=== PATIENT | male | born 1950 | race Caucasian/White ===

== ENCOUNTER 2018-05-02 14:55 | Emergency (ER) | payer BC, MEDICARE ==
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
[2018-05-02 17:04] LABS: ABSOLUTE BASOPHILS # (AUTO) 0.1 10^3/uL (0.0-0.2); ABSOLUTE EOSINOPHILS # (AUTO) 0.1 10^3/uL (0.0-0.6); ABSOLUTE LYMPHOCYTES (AUTO) 0.9 10^3/uL (0.5-4.7); ABSOLUTE MONOCYTES (AUTO) 0.5 10^3/uL (0.1-1.4); ABSOLUTE NEUT (AUTO) 3.6 10^3/uL (1.7-8.2); BASOPHILS % (AUTO) 1.4 % (0-2); EOSINOPHILS % (AUTO) 2.1 % (0-6); HEMOGLOBIN 12.9 g/dL (13.5-17.0); LYMPHOCYTES % (AUTO) 17.9 % (13-45); MEAN CORPUSCULAR HEMOGLOBIN 32.5 pg (27.0-33.4); MEAN CORPUSCULAR HGB CONC 33.9 g/dL (32.0-36.0); MEAN CORPUSCULAR VOLUME 96 fl (80-97); MONOCYTES % (AUTO) 9.3 % (3-13); PLATELET COUNT 217 10^3/uL (150-450); RED BLOOD COUNT 3.97 10^6/uL (4.35-5.55); RED CELL DISTRIBUTION WIDTH 13.8 % (11.5-14.0); SEGMENTED NEUTROPHILS % (AUTO) 69.3 % (42-78); TOTAL CELLS COUNTED % (AUTO) 100 %; WHITE BLOOD COUNT 5.2 10^3/uL (4.0-10.5)
[2018-05-02 17:22] LABS: ALANINE AMINOTRANSFERASE 72 U/L (21-72); ALBUMIN 3.1 g/dL (3.5-5.0); ALKALINE PHOSPHATASE 70 U/L (38-126); ANION GAP 13 (5-19); ASPARTATE AMINO TRANSFERASE 153 U/L (17-59); BILIRUBIN,DIRECT 0.5 mg/dL (0.0-0.4); BILIRUBIN,TOTAL 0.6 mg/dL (0.2-1.3); BLOOD UREA NITROGEN 10 mg/dL (7-20); CALCIUM 8.4 mg/dL (8.4-10.2); CARBON DIOXIDE 25 mmol/L (22-30); CHLORIDE 105 mmol/L (98-107); GLUCOSE 101 mg/dL (75-110); POTASSIUM 4.4 mmol/L (3.6-5.0); SODIUM 142.9 mmol/L (137-145); TOTAL PROTEIN 6.6 g/dL (6.3-8.2)
--- NOTE | 2018-05-02 17:59 | RADIOLOGY REPORT (SQ) ---
EXAM DESCRIPTION: CT ABD/PELVIS WITH IV ONLY COMPLETED DATE/TIME: 05/02/2018 5:43 pm REASON FOR STUDY: Right sided abdominal pain after fall COMPARISON: None. TECHNIQUE: CT scan of the abdomen and pelvis performed using helical scanning technique with dynamic intravenous contrast injection. No oral contrast. Images reviewed with lung, soft tissue, and bone windows. Reconstructed coronal and sagittal MPR images reviewed. Delayed images for evaluation of the urinary system also acquired. All images stored on PACS. All CT scanners at this facility use dose modulation, iterative reconstruction, and/or weight based d osing when appropriate to reduce radiation dose to as low as reasonably achievable (ALARA). [facility]: Dose Right [facility]: CareDose [facility]: Dose Right [facility]: Teradose 4D [facility]: PocketSuite CONTRAST TYPE AND DOSE: contrast/concentration: Isovue 370.00 mg/ml; Total Contrast Delivered: 100.0 ml; Total Saline Delivered: 50.0 ml RENAL FUNCTION: BUN 10 creatinine 1.2 RADIATION DOSE: CT Rad equipment meets quality standard of care and radiation dose reduction techniq ues were employed. CTDIvol: 19.9 - 20.7 mGy. DLP: 2189 mGy-cm.. LIMITATIONS: None. FINDINGS: LOWER CHEST: No significant findings. No nodules or infiltrates. LIVER: The liver is uniformly hypoattenuating. SPLEEN: Normal size. No focal lesions. PANCREAS: No masses. No significant calcifications. No adjacent inflammation or peripancreatic fluid collections. Pancreatic duct not dilated. GALLBLADDER: No identified stones by CT criteria. No inflammatory changes to suggest cholecystitis. ADRENAL GLANDS: No significant masses or asymmetry. RIGHT KIDNEY AND URETER: No masses. Cortical thinning. No significant calcifications. No hydrone phrosis or hydroureter. LEFT KIDNEY AND URETER: Masses. Mild cortical thinning. No significant calcifications. No hydron ephrosis or hydroureter. AORTA AND VESSELS: No aneurysm. No dissection. Renal arteries, SMA, celiac without stenosis. RETROPERITONEUM: No retroperitoneal adenopathy, hemorrhage or masses. BOWEL AND PERITONEAL CAVITY: No masses or inflammatory changes. No free fluid or peritoneal masses. APPENDIX: Not identified. PELVIS: There is a Diaz catheter in the bladder. There is dense bladder calculus or calculi. ABDOMINAL WALL: No masses. No hernias. BONES: Lumbar degenerative disc changes. No acute abnormality. OTHER: No other significant finding. IMPRESSION: 1. Fatty infiltration of the liver. 2. Chronic cortical thinning in the kidneys. 3. There appear to be bladder calculi. 4. Lumbar degenerative disc changes. TECHNICAL DOCUMENTATION: JOB ID: [id number] Quality ID # [id number]: Final reports with documentation of one or more dose reduction techniques (e.g., Au tomated exposure control, adjustment of the mA and/or kV according to patient size, use of iterative reconstruction technique) 2010 [employer]- All Rights Reserved Reading location - IP/workstation name: [email or web address]
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
--- NOTE | 2018-05-03 10:27 | ER Document Report ---
Doctor's Note Notes: 05/03/18 10:24 Rounds: Chart reviewed and patient interviewed. I took care of this patient last evening and he was kept overnight because he could not contact family for him to be discharged. According to the patient, his daughter went to [place], somewhere near the border with [place], to sign paperwork to purchase a house. Patient says that he and the daughter and her , both of which were unemployed, are supposed to move there sometime later this month. He has tried to contact his daughter by telephone but has not been able to reach her. He is living with her and her in the residence of the daughter's mother, this patient 's ex-, locally. Patient says he does not get along very wel with his ex- . He says that his ex- works in the [employer] [facility]. He does not know her address or telephone number. Vital signs are all essentially normal. Lab studies were all also essentially normal. Patient had CT scan of his abdomen and pelvis last evening which were essentially normal. He had other studies including CT scans [facility] before he came in here yesterday to be evaluated for the same problem. Discharge planning has been requested to evaluate the situation and to assist in making a disposition. Patient appears to be medically stable for transfer or discharge. Pavithra Alonzo MD
[2018-05-04] MEDS ORDERED: ACETAMINOPHEN 325 MG TABLET PO ONE (12:20)
--- NOTE | 2018-05-04 12:22 | ER Document Report ---
Doctor's Note Notes: 05/04/18 12:21 Patient's records were reviewed including the CT scan that did not show any acute abnormalities. He will be discharged home today to his ex 's house where he had been staying. Arrangements were made by the social group worker at this facility.
[2018-05-04 12:51] VITALS: BP 126/80
== END 2018-05-04 12:51 | disposition home or self-care (01) ==
LOC: ER 14:55
DX: Z88.2 Allergy status to sulfonamides (principal); S30.1XXA Contusion of abdominal wall, initial encounter; M25.511 Pain in right shoulder; X58.XXXA Exposure to other specified factors, initial encounter; Z88.3 Allergy status to other anti-infective agents
CPT/HCPCS: 80307; 99285; 36415; 83690; 85025; 80053; 73030; 74177; A9270

== ENCOUNTER 2018-05-04 16:52 | Observation (INO) | payer MEDICARE ==
--- NOTE | 2018-05-04 17:05 | ER Document Report ---
HPI - HPI Pain Level: Denies Past Medical History - Social History Family History: Reviewed & Not Pertinent Renal/ Medical History: Denies: Hx Peritoneal Dialysis Past Surgical History: Reports: Hx Orthopedic Surgery - Back 2 Vertical Provider Document - INFECTION CONTROL TRAVEL OUTSIDE OF THE [place] IN LAST 30 DAYS: No Course - Vital Signs Vital signs: Temp Pulse Resp BP Pulse Ox 98 F 88 16 148/88 H 94 05/04/18 16:56 05/04/18 16:56 05/04/18 16:56 05/04/18 16:56 05/04/18 16:56
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
[2018-05-04] MEDS ORDERED: ONDANSETRON 4 MG TAB.RAPDIS PO PRN (18:26)
[2018-05-04] MEDS ORDERED: GABAPENTIN 100 MG CAPSULE PO PRN (18:30)
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
[2018-05-04] MEDS: METOPROLOL TARTRATE 25 MG TABLET PO SCH (21:53)
[2018-05-04] MEDS: ACETAMINOPHEN 325 MG TABLET PO PRN (21:54)
[2018-05-04] MEDS ORDERED: MIRTAZAPINE 15 MG TABLET PO SCH (22:00)
[2018-05-05 07:08] LABS: ALANINE AMINOTRANSFERASE 71 U/L (21-72); ALBUMIN 2.9 g/dL (3.5-5.0); ALKALINE PHOSPHATASE 66 U/L (38-126); ANION GAP 7 (5-19); ASPARTATE AMINO TRANSFERASE 91 U/L (17-59); BILIRUBIN,DIRECT 0.4 mg/dL (0.0-0.4); BILIRUBIN,TOTAL 0.4 mg/dL (0.2-1.3); BLOOD UREA NITROGEN 14 mg/dL (7-20); CALCIUM 8.8 mg/dL (8.4-10.2); CARBON DIOXIDE 27 mmol/L (22-30); CHLORIDE 107 mmol/L (98-107); GLUCOSE 89 mg/dL (75-110); POTASSIUM 4.8 mmol/L (3.6-5.0); SODIUM 141.3 mmol/L (137-145)
[2018-05-05] MEDS ORDERED: LOSARTAN POTASSIUM 25 MG TABLET PO SCH (10:00)
[2018-05-05] MEDS ORDERED: ASPIRIN 81 MG TABLET, ENT COATED PO SCH (10:00)
[2018-05-05] MEDS ORDERED: ATORVASTATIN CALCIUM 40 MG TABLET PO SCH (10:00)
[2018-05-05] MEDS ORDERED: AMLODIPINE BESYLATE 10 MG TABLET PO SCH (10:00)
[2018-05-05] MEDS ORDERED: ENOXAPARIN SODIUM INJ 40 MG/0.4 ML DISP.SYRIN SUBCUT SCH (10:00)
[2018-05-05] MEDS: METOPROLOL TARTRATE 25 MG TABLET PO SCH (11:49)
[2018-05-05] MEDS: ACETAMINOPHEN 325 MG TABLET PO PRN (12:59)
[2018-05-05 16:35] VITALS: BP 99/68
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
== END 2018-05-05 20:00 | disposition left against medical advice (07) ==
LOC: ER 16:52 → EH 18:48 → 5 21:04
PROVIDERS: ADMIT Internal Medicine; ATTEND Internal Medicine
DX: T76.01XA Adult neglect or abandonment, suspected, initial encounter (principal); I10 Essential (primary) hypertension; N35.8 Other urethral stricture; F32.9 Major depressive disorder, single episode, unspecified; G89.29 Other chronic pain; M54.5 Low back pain; R26.81 Unsteadiness on feet; Z96.0 Presence of urogenital implants; Z74.09 Other reduced mobility; Z98.890 Other specified postprocedural states; Z79.82 Long term (current) use of aspirin; Z79.899 Other long term (current) drug therapy; Z68.33 Body mass index [BMI] 33.0-33.9, adult; Z63.8 Other specified problems related to primary support group; Z74.8 Other problems related to care provider dependency; Z91.81 History of falling
CPT/HCPCS: 99285; 36415; 80076; 80048; G0378 ×2; A9270 ×4; J3490

== ENCOUNTER 2018-05-07 05:41 | Emergency (ER) | payer MEDICARE ==
[2018-05-07 05:51] VITALS: BP 118/80
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
--- NOTE | 2018-05-07 07:18 | RADIOLOGY REPORT (SQ) ---
EXAM DESCRIPTION: XR CHEST 2 VIEWS COMPLETED DATE/TME: 05/07/2018 06:44 CLINICAL HISTORY: hx rib fx, increased pain, crackles RLL COMPARISON: None. FINDINGS: Frontal and lateral views of the chest. The cardiomediastinal silhouette has normal size and contour. No consolidation, pneumothorax, or pleural effusion. Fractures of the posterior left third through fifth ribs. No pneumothorax. Upper abdominal soft tissues are unremarkable. IMPRESSION: 1. Fractures of posterior left third through fifth ribs. No pneumothorax.
[2018-05-07] MEDS ORDERED: LIDOCAINE 5% (700 MG) TRANSDERMAL ADH..PATCH TP ONE (07:20)
[2018-05-07] MEDS ORDERED: KETOROLAC TROMETHAMINE 60 MG/2 ML SDV IM ONE (07:20)
== END 2018-05-07 08:40 | disposition home or self-care (01) ==
LOC: ER 05:41
DX: S22.42XD Multiple fractures of ribs, left side, subsequent encounter for fracture with routine healing (principal); W19.XXXD Unspecified fall, subsequent encounter; R10.9 Unspecified abdominal pain; R10.11 Right upper quadrant pain; R10.816 Epigastric abdominal tenderness; R10.811 Right upper quadrant abdominal tenderness; R10.814 Left lower quadrant abdominal tenderness; R00.0 Tachycardia, unspecified; R09.89 Other specified symptoms and signs involving the circulatory and respiratory systems; I10 Essential (primary) hypertension; Z88.1 Allergy status to other antibiotic agents; Z88.2 Allergy status to sulfonamides
CPT/HCPCS: 99283; 96372; 71046; J1885

== ENCOUNTER 2018-05-13 22:12 | Inpatient (IN) | payer MEDICARE ==
[2018-05-13] MEDS ORDERED: ACETAMINOPHEN 325 MG TABLET PO ONE (23:03)
[2018-05-13] MEDS ORDERED: NORMAL SALINE 1000 ML 1,000 ML IV ONE (23:03)
--- NOTE | 2018-05-13 23:04 | ER Document Report ---
ED Medical Screen (RME) - General Chief Complaint: Pain All Over Stated Complaint: BODY PAIN Time Seen by Provider: 05/13/18 22:55 Mode of Arrival: Wheelchair Information source: Patient TRAVEL OUTSIDE OF THE [place] IN LAST 30 DAYS: No - HPI Patient complains to provider of: Fever, body aches, nausea and vomiting, generalized weakness - Related Data Allergies/Adverse Reactions: erythromycin base Allergy (Verified 05/02/18 14:57) Sulfa (Sulfonamide Antibiotics) Allergy (Verified 05/02/18 14:57) Past Medical History - Social History Frequency of alcohol use: Pt states,"as often as I can." Drug Abuse: None - Past Medical History Cardiac Medical History: Reports: Hx Hypertension Renal/ Medical History: Denies: Hx Peritoneal Dialysis Past Surgical History: Reports: Hx Appendectomy - Reports as of 05/07/2018, Hx Orthopedic Surgery - Back 2 - Immunizations History of Influenza Vaccine for 07/2017 - 12/2017 Season: Unknown Physical Exam - Vital signs Vitals: Temp Pulse Resp BP Pulse Ox 99.6 F 111 H 18 139/95 H 97 05/13/18 22:19 05/13/18 22:19 05/13/18 22:19 05/13/18 22:19 05/13/18 22:19 Course - Vital Signs Vital signs: Temp Pulse Resp BP Pulse Ox 99.6 F 111 H 18 139/95 H 97 05/13/18 22:19 05/13/18 22:19 05/13/18 22:19 05/13/18 22:19 05/13/18 22:19
--- NOTE | 2018-05-13 23:47 | RADIOLOGY REPORT (SQ) ---
EXAM DESCRIPTION: XR CHEST 1 VIEW COMPLETED DATE/TME: 05/13/2018 23:03 CLINICAL HISTORY: 67 years, Male, fever COMPARISON: 05/07/2018 FINDINGS: Single view of the chest is submitted. Cardiac silhouette is normal. There is a small focus of consolidation at the left lung base, new since the prior exam. No acute bony abnormality. There is no significant pulmonary vascular engorgement. IMPRESSION: Left lung base consolidation.
[2018-05-14] MEDS ORDERED: NORMAL SALINE 1000 ML 500 ML IV ONE (00:48)
--- NOTE | 2018-05-14 00:51 | ER Document Report ---
ED General - General Chief Complaint: Pain All Over Stated Complaint: BODY PAIN Time Seen by Provider: 05/13/18 22:55 Mode of Arrival: Wheelchair Notes: Patient is a 67-year-old male that comes emergency department for chief complaint of weakness, he vomited twice earlier, he had some chills, he states that today he felt like he could not get out of bed or stand to walk around, he states he has no balance. He drinks alcohol heavily and regularly, he has a history of hypertension and reported neuropathy. He has chronic left-sided weakness in his hand on the left after multiple fractures in his arm, forearm, hand patient reports. He states he has not drank any alcohol since yesterday. He denies getting alcohol withdrawals. He denies smoking or recreational drugs. TRAVEL OUTSIDE OF THE [place] IN LAST 30 DAYS: No - Related Data Allergies/Adverse Reactions: erythromycin base Allergy (Verified 05/02/18 14:57) Sulfa (Sulfonamide Antibiotics) Allergy (Verified 05/02/18 14:57) Past Medical History - General Information source: Patient - Social History Smoking Status: Former Smoker Frequency of alcohol use: Pt states,"as often as I can." Drug Abuse: None Family History: Reviewed & Not Pertinent Patient has suicidal ideation: No Patient has homicidal ideation: No - Past Medical History Cardiac Medical History: Reports: Hx Hypertension Renal/ Medical History: Denies: Hx Peritoneal Dialysis Past Surgical History: Reports: Hx Appendectomy - Reports as of 05/07/2018, Hx Orthopedic Surgery - Back 2 Review of Systems - Review of Systems Constitutional: See HPI EENT: No symptoms reported Cardiovascular: No symptoms reported Respiratory: No symptoms reported Gastrointestinal: See HPI Genitourinary: No symptoms reported Male Genitourinary: No symptoms reported Musculoskeletal: No symptoms reported Skin: No symptoms reported Hematologic/Lymphatic: No symptoms reported Neurological/Psychological: See HPI Physical Exam - Vital signs Vitals: Temp 98 F 05/13/18 22:15 - Notes Notes: GENERAL: Patient ill-appearing, disheveled HEAD: Normocephalic, atraumatic. EYES: Pupils equal, round, and reactive to light. Extraocular movements intact. ENT: Oral mucosa dry, tongue midline. NECK: Full range of motion. Supple. Trachea midline. LUNGS: A few scattered rhonchi, occasional congested cough, no tachypnea or labored breathing HEART: Regular rate and rhythm. No murmur ABDOMEN: Soft, non-tender. Non-distended. Bowel sounds present in all 4 quadrants. EXTREMITIES: Moves all 4 extremities spontaneously. No edema, normal radial and dorsalis pedis pulses bilaterally. No cyanosis. BACK: no cervical, thoracic, lumbar midline tenderness. No saddle anesthesia, normal distal neurovascular exam. NEUROLOGICAL: Alert and oriented x3. Normal speech. [cranial nerves II through XII grossly intact]. Baseline tremor noted. Weakness in the left hand with senior health consultant and weakness in lifting the left leg compared to the right. PSYCH: Normal affect, normal mood. SKIN: Slightly pale Course - Re-evaluation Re-evalutation: CT of the head performed because of reported imbalance and uncertain duration of his left-sided weakness. This was negative for acute findings. Chest x-ray consistent with left lower lobe infiltrate. Urinalysis shows infection. CBC generally unremarkable actually. Chemistry generally unremarkable. Lactic acid is elevated at 3.1, suspect septic pneumonia. He is tachycardic with no hypotension or fever here, reported chills and sweats at home, good capillary refill on examination and reexamination. Patient was initially started on Levaquin, he is allergic to erythromycin. Cultures placed in pending. Given IV fluids. Because of suspected sepsis with pneumonia, UTI, and tachycardia will discuss with hospitalist for admission. Discussed with patient. He states agreement with this plan. Discussed with Dr. Ayoub, internal medicine, patient will be admitted to telemetry full admission. - Vital Signs Vital signs: Temp Pulse Resp BP Pulse Ox 99.6 F 88 14 140/87 H 96 05/13/18 22:19 05/14/18 02:15 05/14/18 04:01 05/14/18 04:00 05/14/18 04:01 - Laboratory Result Diagrams: 05/14/18 05:00 05/14/18 05:00 Laboratory results interpreted by me: 05/14/18 05/14/18 05/14/18 01:00 01:00 01:00 RBC 4.09 L Hgb 12.8 L VBG pH Chloride 108 H Carbon Dioxide 21 L Glucose 129 H Lactic Acid 3.1 H Urine Protein Urine Blood Urine Nitrite Ur Leukocyte Esterase 05/14/18 05/14/18 01:00 01:16 RBC Hgb VBG pH 7.43 H Chloride Carbon Dioxide Glucose Lactic Acid Urine Protein 30 H Urine Blood SMALL H Urine Nitrite POSITIVE H Ur Leukocyte Esterase LARGE H Discharge - Discharge Clinical Impression: Weakness, Tachycardia, Elevated lactic acid level Pneumonia Qualifiers: Pneumonia type: due to unspecified organism Laterality: left Lung location: lower lobe of lung Qualified Code(s): J18.1 - Lobar pneumonia, unspecified organism Urinary tract infection Qualifiers: Urinary tract infection type: site unspecified Hematuria presence: without hematuria Qualified Code(s): N39.0 - Urinary tract infection, site not specified Condition: Stable Disposition: ADMITTED INPATIENT Admitting Provider: Hospitalist Unit Admitted: Telemetry
[2018-05-14] MEDS ORDERED: LEVOFLOXACIN 750 MG/D5W RTU 750 MG/150 ML RTUPB IV ONE (01:06)
[2018-05-14 01:16] LABS: VENOUS BLOOD BASE EXCESS -0.7 mmol/L; VENOUS BLOOD HCO3 23.1 mmol/L (20-32); VENOUS BLOOD PCO2 35.2 mmHg (35-63); VENOUS BLOOD PH 7.43 (7.30-7.42)
[2018-05-14 01:28] LABS: HEMATOCRIT 38.4 % (37.9-51.0); HEMOGLOBIN 12.8 g/dL (13.5-17.0); MEAN CORPUSCULAR HEMOGLOBIN 31.4 pg (27.0-33.4); MEAN CORPUSCULAR HGB CONC 33.5 g/dL (32.0-36.0); MEAN CORPUSCULAR VOLUME 94 fl (80-97); PLATELET COUNT 263 10^3/uL (150-450); RED BLOOD COUNT 4.09 10^6/uL (4.35-5.55); RED CELL DISTRIBUTION WIDTH 13.7 % (11.5-14.0); WHITE BLOOD COUNT 7.5 10^3/uL (4.0-10.5)
[2018-05-14 01:30] LABS: PROTHROMBIN TIME 13.7 SEC (11.4-15.4)
[2018-05-14 01:32] LABS: ALANINE AMINOTRANSFERASE 52 U/L (21-72); ALBUMIN 3.7 g/dL (3.5-5.0); ALKALINE PHOSPHATASE 84 U/L (38-126); ANION GAP 14 (5-19); ASPARTATE AMINO TRANSFERASE 44 U/L (17-59); BILIRUBIN,DIRECT 0.4 mg/dL (0.0-0.4); BILIRUBIN,TOTAL 0.7 mg/dL (0.2-1.3); BLOOD UREA NITROGEN 9 mg/dL (7-20); CALCIUM 8.8 mg/dL (8.4-10.2); CARBON DIOXIDE 21 mmol/L (22-30); CHLORIDE 108 mmol/L (98-107); CREATINE KINASE 103 U/L (55-170); GLUCOSE 129 mg/dL (75-110); LIPASE 274.3 U/L (23-300); POTASSIUM 4.3 mmol/L (3.6-5.0); SODIUM 143.3 mmol/L (137-145); TOTAL PROTEIN 7.2 g/dL (6.3-8.2)
[2018-05-14 01:36] LABS: APPEARANCE,URINE CLOUDY; BILIRUBIN,URINE NEGATIVE (NEGATIVE); COLOR,URINE YELLOW; GLUCOSE, URINE NEGATIVE (NEGATIVE); KETONES,URINE NEGATIVE (NEGATIVE); LEUKOCYTE ESTERASE,URINE LARGE (NEGATIVE); NITRITE,URINE POSITIVE (NEGATIVE); PROTEIN,URINE 30 mg/dL (NEGATIVE); URINE SPECIFIC GRAVITY 1.006; UROBILINOGEN,URINE NEGATIVE mg/dL (<2.0)
[2018-05-14 01:46] LABS: ABSOLUTE LYMPHOCYTES# (MANUAL) 1.5 10^3/uL (0.5-4.7); ABSOLUTE MONOCYTES # (MANUAL) 0.4 10^3/uL (0.1-1.4); ABSOLUTE NEUTROPHILS# (MANUAL) 5.3 10^3/uL (1.7-8.2); BASOPHILS % (MANUAL) 2 % (0-2); EOSINOPHILS % (MANUAL) 3 % (0-6); LYMPHOCYTES % (MANUAL) 20 % (13-45); MONOCYTES % (MANUAL) 5 % (3-13); SEGMENTED NEUTROPHILS % (MAN) 70 % (42-78); TOTAL CELLS COUNTED 100
[2018-05-14 01:47] LABS: PLATELET COMMENT ADEQUATE; RBC MORPHOLOGY COMMENT NORMO-CYTIC/CHROMIC
[2018-05-14] MEDS ORDERED: THIAMINE HCL 100 MG, FOLIC ACID 1 MG in NORMAL SALINE 250 ML IV PRN (01:56)
--- NOTE | 2018-05-14 02:35 | RADIOLOGY REPORT (SQ) ---
CT head without contrast on 05/14/2018 at 1:46 AM CLINICAL INDICATION: Imbalance, left-sided weakness TECHNIQUE: Multiple axial images are obtained throughout the head without the administration of contrast. This exam was performed according to our departmental dose-optimization program, which includes automated exposure control, adjustment of the mA and/or kV according to patient size and/or use of iterative reconstruction technique. Total DLP is 2193.96 mGy*cm. COMPARISON: None FINDINGS: There is generalized cerebral atrophy. There is no hydrocephalus. There is mild low-density in the periventricular white matter consistent with chronic small vessel ischemic changes. There is no CT evidence of acute infarct. There is no hemorrhage. There are no abnormal extra-axial fluid collections. There is no mass, mass effect or midline shift. Mucous retention cysts are noted in the left maxillary sinus. No acute bony abnormality is noted. IMPRESSION: Atrophy and chronic small vessel ischemic changes with no acute intracranial abnormality.
[2018-05-14] MEDS ORDERED: IPRATROPIUM/ALBUTEROL 0.5-2.5 MG/3 ML AMPUL NEB PRN (03:56)
[2018-05-14] MEDS ORDERED: PROMETHAZINE HCL INJ 25 MG/1 ML VIAL IV PRN (04:04)
[2018-05-14] MEDS ORDERED: PROMETHAZINE HCL INJ 25 MG/1 ML VIAL ONE (04:08)
--- NOTE | 2018-05-14 04:19 | PDOC H&P ---
History of Present Illness Admission Date/PCP: 05/14/18 03:17 Patient complains of: Did not feel good History of Present Illness: DIANE PERKINS is a 67 year old male who comes to the emergency department complaining of "didn't feel good". Patient tells me until yesterday he was doing at his baseline, today in the morning he was feeling sick, this progresses throughout the day, by 9 PM he was feeling very weak, was hard to walk, and noticed that his voice was changing, is "rough" and deep. Denies shortness of breath, he had minimal cough during the day, denies Flaim, he is having mild sore throat. He denies wheezing, fever, chills, chest pain, abdominal pain. Patient has a chronic indwelling catheter for the last 8 years secondary to ureteral stricture and neurogenic bladder, Diaz is changed once a month, last a week ago. Tells me that his urine is always infected, is not on chronic antibiotics, last urinary infection long ago. Times feels dysuria on and off, denies hematuria. Has chronic left lower extremity weakness secondary to back problems. Initially in the emergency department was tachycardic P1 111, R 23, O2 sat 100% on room air. Chest x-ray positive for left lower lobe pneumonia and a urinalysis positive for infection. Ordered 2 L of IV fluids and IV antibiotic. Past Medical History Cardiac Medical History: Reports: Hypertension Renal/ Medical History: Reports: Other Renal/ History Note: Chronic indwelling catheter secondary to urethral stricture and neurogenic bladder Psychiatric Medical History: Reports: Alcohol Dependency Traumatic Medical History: Reports: Other - The blood fractures in the left upper extremity, left rib fractures. Past Surgical History Past Surgical History: Reports: Appendectomy - Reports as of 05/07/2018, Orthopedic Surgery - Back surgery 2, Other - 2 urological surgeries Social History Smoking Status: Former Smoker - Quit in 1989, used to smoke 1-2 packs a day Frequency of Alcohol Use: Heavy - Patient drinks daily, 1 bottle of vodka last 2 or 3 days Last Alcohol Use: 05/13/18 Hx Recreational Drug Use: No Drugs: None Family History Family History: Reviewed & Not Pertinent Parental Family History Reviewed: No Children Family History Reviewed: NA Sibling(s) Family History Reviewed.: NA Medication/Allergy Home Medications: Amlodipine Besylate [Norvasc 10 mg Tablet] 10 mg PO DAILY 05/03/18 Aspirin [Aspirin EC] 81 mg PO DAILY 05/03/18 Atorvastatin Calcium [Lipitor 40 mg Tablet] 40 mg PO DAILY 05/03/18 Gabapentin [Neurontin 100 mg Capsule] 100 mg PO Q8HP PRN 05/03/18 Losartan Potassium [Cozaar 25 mg Tablet] 25 mg PO DAILY 05/03/18 Metoprolol Tartrate [Lopressor 25 mg Tablet] 25 mg PO Q12 05/03/18 Mirtazapine [Remeron 15 mg Tablet] 7.5 mg PO QHS 05/03/18 Hydrocodone/Acetaminophen [[place] 5-325 mg Tablet] 1 tab PO Q4HP PRN #14 tablet 05/07/18 Lidocaine [Lidoderm 5% (700 mg) Transdermal Patch] 1 patch TP DAILY #30 adh..patch 05/07/18 Allergies/Adverse Reactions: erythromycin base Allergy (Verified 05/02/18 14:57) Sulfa (Sulfonamide Antibiotics) Allergy (Verified 05/02/18 14:57) Review of Systems Review of Systems: As outlined in the HPI, all others negative Physical Exam Vital Signs: Temp Pulse Resp BP Pulse Ox 99.6 F 111 H 15 139/94 H 99 05/13/18 22:19 05/13/18 22:19 05/14/18 03:00 05/14/18 01:01 05/14/18 03:00 Additional comments: General appearance: Well-developed, disheveled, obese, alert and cooperative, and appears to be in no acute distress Head: Normocephalic Eyes: PEERL, EOMI, vision is grossly intact. Ears: External auditory canal and tympanic membranes clear, hearing grossly intact. Nose: No nasal discharge. Throat: Oral cavity and pharynx normal. No inflammation, swelling, exudate or lesions. Neck: Neck supple, nontender without lymphadenopathy, masses or thyromegaly. Cardiac: Normal S1 and S2. No S3, S4 or murmurs. Rhythm is regular. There is no peripheral edema, cyanosis or pallor. Extremities are warm and well perfused. Capillary refill is less than 2 seconds. No carotid bruits. Lungs: Clear to auscultation and percussion with minimal bibasilar crackles, not appreciate rhonchi or wheezing. Not using accessory muscles. Abdomen: Positive bowel sounds. Soft. Nondistended, nontender. No guarding or rebound. No masses. Difficult to appreciate hepatosplenomegaly due to body habitus Extremities: No significant deformity or joint abnormality. No edema. Peripheral pulses intact. No varicosities. Neurological: Cranial nerves II through XII grossly intact. Strength and sensation decreasing left lower extremity. Difficult to move his left upper extremity Skin: Skin normal color, texture and turgor with no lesions or eruptions, warm and dry. Psychiatric: The mental examination revealed the patient was oriented to person , place, and time. The patient was able to demonstrate good judgment on recent , without hallucinations, abnormal affect or abnormal behaviors. Results Laboratory Results: 05/14/18 05/14/18 05/14/18 01:00 01:00 01:00 WBC 7.5 Hgb 12.8 L Hct 38.4 Plt Count 263 Seg Neuts % (Manual) 70 PT 13.7 INR 1.00 VBG pH VBG pCO2 VBG HCO3 Sodium 143.3 Potassium 4.3 Chloride 108 H Carbon Dioxide 21 L Anion Gap 14 BUN 9 Creatinine 1.20 Glucose 129 H Lactic Acid Calcium 8.8 Total Bilirubin 0.7 Direct Bilirubin 0.4 AST 44 ALT 52 Alkaline Phosphatase 84 Creatine Kinase 103 Troponin I Total Protein 7.2 Albumin 3.7 Lipase 274.3 05/14/18 05/14/18 05/14/18 01:00 01:00 01:00 WBC Hgb Hct Plt Count Seg Neuts % (Manual) PT INR VBG pH 7.43 H VBG pCO2 35.2 VBG HCO3 23.1 Sodium Potassium Chloride Carbon Dioxide Anion Gap BUN Creatinine Glucose Lactic Acid 3.1 H Calcium Total Bilirubin Direct Bilirubin AST ALT Alkaline Phosphatase Creatine Kinase Troponin I < 0.012 Total Protein Albumin Lipase Impressions: Chest X-Ray 05/13/18 23:03 IMPRESSION: Left lung base consolidation. Head CT 05/14/18 00:48 IMPRESSION: Atrophy and chronic small vessel ischemic changes with no acute intracranial abnormality. Assessment & Plan - Diagnosis (1) HCAP (healthcare-associated pneumonia) Is this a current diagnosis for this admission?: Yes Plan: Patient has been recently in our facility for 48 hours, I will treat this patient as age With broad-spectrum antibiotics as per his chest x-ray shows left lower lobe pneumonia. Initiated IV cefepime and IV Levaquin. RT consult. DuoNeb nebulizer treatments as needed. Do not feel the patient needs to be started on steroids. Sputum culture. Will place a strep throat swab as per complains of sore throat. (2) Elevated lactic acid level Is this a current diagnosis for this admission?: Yes Plan: Lactic acid 3.1, will repeat these values at 6 in the morning after IV hydration. (3) Urinary tract infection Qualifiers: Urinary tract infection type: site unspecified Hematuria presence: without hematuria Qualified Code(s): N39.0 - Urinary tract infection, site not specified Is this a current diagnosis for this admission?: Yes Plan: She has a chronic indwelling catheter, he probably has chronic bacteriuria and probably he has a superimposed infection. Already placed him on broad-spectrum antibiotics. Please follow blood and urine cultures. (4) Chronic indwelling Diaz catheter Is this a current diagnosis for this admission?: Yes Plan: For the last year secondary to neurogenic bladder and urethral strictures. Patient had 2 urological surgeries in the past. (5) Hypertension Qualifiers: Hypertension type: essential hypertension Qualified Code(s): I10 - Essential (primary) hypertension Is this a current diagnosis for this admission?: Yes Plan: Blood pressure is decently controlled, will resume his home antihypertensive medications. (6) Neglectful caretaking Is this a current diagnosis for this admission?: Yes Plan: She was recently admitted as he was homeless and nobody could take care of him, he is not independent all his ADLs as he is nonambulatory. Tells me that his daughter is taking care of him now. Discharge planning consult placed. - Time Time Spent: 30 to 50 Minutes - Inpatient Certification Based on my medical assessment, after consideration of the patient's comorbidities, presenting symptoms, or acuity I expect that the services needed warrant INPATIENT care.: Yes I certify that my determination is in accordance with my understanding of Medicare's requirements for reasonable and necessary INPATIENT services [42 CFR 412.3e].: Yes Medical Necessity: Risk of Complication if Not Cared For in Hospital
[2018-05-14] MEDS ORDERED: BENZOCAINE/MENTHOL SORE THROAT LOZENGE BUCCAL PRN (04:20)
[2018-05-14] MEDS: NORMAL SALINE 1000 ML 1,000 ML IV PRN ×2 (05:09→21:02)
[2018-05-14 05:14] LABS: ABSOLUTE BASOPHILS # (AUTO) 0.1 10^3/uL (0.0-0.2); ABSOLUTE EOSINOPHILS # (AUTO) 0.1 10^3/uL (0.0-0.6); ABSOLUTE LYMPHOCYTES (AUTO) 1.1 10^3/uL (0.5-4.7); ABSOLUTE MONOCYTES (AUTO) 0.4 10^3/uL (0.1-1.4); ABSOLUTE NEUT (AUTO) 4.7 10^3/uL (1.7-8.2); BASOPHILS % (AUTO) 1.4 % (0-2); EOSINOPHILS % (AUTO) 1.6 % (0-6); HEMATOCRIT 35.3 % (37.9-51.0); HEMOGLOBIN 12.1 g/dL (13.5-17.0); LYMPHOCYTES % (AUTO) 17.8 % (13-45); MEAN CORPUSCULAR HEMOGLOBIN 32.2 pg (27.0-33.4); MEAN CORPUSCULAR HGB CONC 34.4 g/dL (32.0-36.0); MEAN CORPUSCULAR VOLUME 94 fl (80-97); PLATELET COUNT 240 10^3/uL (150-450); RED BLOOD COUNT 3.76 10^6/uL (4.35-5.55); RED CELL DISTRIBUTION WIDTH 13.6 % (11.5-14.0); SEGMENTED NEUTROPHILS % (AUTO) 73.2 % (42-78); TOTAL CELLS COUNTED % (AUTO) 100 %; WHITE BLOOD COUNT 6.4 10^3/uL (4.0-10.5)
[2018-05-14 05:42] LABS: ANION GAP 12 (5-19); BLOOD UREA NITROGEN 10 mg/dL (7-20); CALCIUM 8.4 mg/dL (8.4-10.2); CARBON DIOXIDE 22 mmol/L (22-30); CHLORIDE 109 mmol/L (98-107); GLUCOSE 112 mg/dL (75-110); POTASSIUM 4.1 mmol/L (3.6-5.0); SODIUM 143.2 mmol/L (137-145)
[2018-05-14] MEDS ORDERED: LORAZEPAM 1 MG TABLET PO ONE (06:33)
--- NOTE | 2018-05-14 06:47 | EKG REPORT ---
SEVERITY:- BORDERLINE ECG - SINUS RHYTHM PROBABLE LEFT ATRIAL ABNORMALITY : Confirmed by: Moises Church 14-May-2018 06:46:52
[2018-05-14] MEDS: CEFEPIME 2 GM/D5W RTU 2 GM/50 ML RTUPB IV SCH ×2 (09:30→23:46)
[2018-05-14] MEDS: GUAIFENESIN 600 MG TABLET.SA PO SCH ×2 (09:31→22:11)
[2018-05-14] MEDS: ENOXAPARIN SODIUM INJ 40 MG/0.4 ML DISP.SYRIN SUBCUT SCH (09:32)
[2018-05-14] MEDS: ACETAMINOPHEN 325 MG TABLET PO PRN (18:07)
--- NOTE | 2018-05-14 18:45 | Progress Note ---
Provider Note Provider Note: Patient admitted earlier today. He is still in the ED, where I saw him. Reports feeling better although still weak. Denies fever or chills. Lactic acid level improving. PE GEN: NAD CV: RRR, NL S1S2 LUNGS: Few basilar crackles bilaterally ABDOMEN Soft, NT, +BS EXTERMITIES: No e/c/c NEURO: Alert, oriented A/P HCAP UTI Chronic indwelling Diaz -We will continue antibiotics, supportive care. -Follow-up labs in a.m., including repeat lactic acid level.
[2018-05-14] MEDS: LEVOFLOXACIN 750 MG/D5W RTU 750 MG/150 ML RTUPB IV SCH (22:10)
[2018-05-14] MEDS ORDERED: CEFEPIME 2 GM/D5W RTU 2 GM/50 ML RTUPB IV ONE (22:26)
[2018-05-15] MEDS: ACETAMINOPHEN 325 MG TABLET PO PRN ×2 (03:10→23:29)
[2018-05-15] MEDS: ENOXAPARIN SODIUM INJ 40 MG/0.4 ML DISP.SYRIN SUBCUT SCH (09:07)
[2018-05-15] MEDS: GUAIFENESIN 600 MG TABLET.SA PO SCH ×2 (09:08→22:46)
[2018-05-15] MEDS: CEFEPIME 2 GM/D5W RTU 2 GM/50 ML RTUPB IV SCH ×2 (09:32→22:45)
[2018-05-15] MEDS: NORMAL SALINE 1000 ML 1,000 ML IV PRN (12:31)
--- NOTE | 2018-05-15 17:46 | PDOC PROGRESS REPORT ---
Subjective Progress Note for:: 05/15/18 Subjective:: No adverse events overnight. No new complaints. Vital signs been stable. He has had no chest pain or shortness of breath. No cough. No sputum production. No dyspnea. No dysuria. He has been lying in bed comfortably watching television all morning. Reason For Visit: HCAP Physical Exam Vital Signs: Temp Pulse Resp BP Pulse Ox 99.5 F 93 20 145/85 H 97 05/15/18 15:28 05/15/18 15:28 05/15/18 15:28 05/15/18 15:28 05/15/18 15:28 Pulse Oximeter Continuous Start: 05/14/18 03: 47 Freq: RTQ4 Status: Active Document 05/15/18 12:21 [facility] (Rec: 05/15/18 12:21 [facility] [id number]) Pulse Oximetry Assessment Oxygen Saturation (92-100) 99 Oxygen Delivery Method Room Air Fraction of Inspired Oxygen (FIO2) 21 Equipment Usage Equipment in Use Continuous SpO2 Machine # N 11 Intake & Output 05/14/18 05/15/18 05/16/18 06:59 06:59 06:59 Intake Total 7091 629 4502 Output Total 1000 2000 Balance 0 -1480 1050 Weight 100 kg General appearance: PRESENT: no acute distress, cooperative, disheveled, obese Teeth exam: PRESENT: poor dentation Respiratory exam: PRESENT: clear to auscultation jack, symmetrical, unlabored. ABSENT: accessory muscle use, rales, rhonchi, tachypnea, wheezes Cardiovascular exam: PRESENT: RRR. ABSENT: systolic murmur GI/Abdominal exam: PRESENT: normal bowel sounds, soft. ABSENT: guarding, rebound, tenderness Extremities exam: ABSENT: pedal edema Musculoskeletal exam: PRESENT: normal inspection. ABSENT: deformity Neurological exam: PRESENT: alert, awake, oriented to person, oriented to place Skin exam: PRESENT: dry, warm Results Laboratory Results: 05/14/18 05:00 05/14/18 05:00 Impressions: Chest X-Ray 05/13/18 23:03 IMPRESSION: Left lung base consolidation. Head CT 05/14/18 00:48 IMPRESSION: Atrophy and chronic small vessel ischemic changes with no acute intracranial abnormality. Assessment & Plan - Diagnosis (1) HCAP (healthcare-associated pneumonia) Is this a current diagnosis for this admission?: Yes Plan: Is being treated with broad-spectrum antibiotics for bibasilar pneumonia. Cultures are pending. Will hope to de-escalate his coverage quickly. (2) Urinary tract infection Qualifiers: Urinary tract infection type: site unspecified Hematuria presence: without hematuria Qualified Code(s): N39.0 - Urinary tract infection, site not specified Is this a current diagnosis for this admission?: Yes Plan: Currently on broad-spectrum coverage. He has had a chronic indwelling Diaz which increases his risk of a resistant organism. Cultures are pending. (3) Chronic indwelling Diaz catheter Is this a current diagnosis for this admission?: Yes Plan: As noted above - Time Time Spent with patient: 15-24 minutes
[2018-05-15] MEDS: LEVOFLOXACIN 750 MG/D5W RTU 750 MG/150 ML RTUPB IV SCH (23:20)
[2018-05-16] MEDS: MIRTAZAPINE 15 MG TABLET PO PRN (02:46)
[2018-05-16] MEDS: NORMAL SALINE 1000 ML 1,000 ML IV PRN (05:18)
[2018-05-16] MEDS: ENOXAPARIN SODIUM INJ 40 MG/0.4 ML DISP.SYRIN SUBCUT SCH (11:06)
[2018-05-16] MEDS: CEFEPIME 2 GM/D5W RTU 2 GM/50 ML RTUPB IV SCH (11:06)
[2018-05-16] MEDS: GUAIFENESIN 600 MG TABLET.SA PO SCH ×2 (11:07→22:29)
--- NOTE | 2018-05-16 18:53 | PDOC PROGRESS REPORT ---
Subjective Progress Note for:: 05/16/18 Subjective:: No adverse events overnight. No new complaints. Vital signs been stable. He has had no chest pain or shortness of breath. No cough. No sputum production. No dyspnea. No dysuria. He has been lying in bed comfortably watching television all morning again. He said he was put on oxygen this morning but he does not know why. Reason For Visit: HCAP Physical Exam Vital Signs: Temp Pulse Resp BP Pulse Ox 98.6 F 82 16 133/73 H 99 05/16/18 15:23 05/16/18 16:25 05/16/18 16:25 05/16/18 15:23 05/16/18 16:25 Pulse Oximeter Continuous Start: 05/14/18 03: 47 Freq: RTQ4 Status: Active Document 05/16/18 16:25 [facility] (Rec: 05/16/18 16:30 [facility] [id number]) Pulse Oximetry Assessment Oxygen Saturation (92-100) 99 Oxygen Delivery Method Room Air Fraction of Inspired Oxygen (FIO2) 21 Equipment Usage Equipment in Use Continuous SpO2 Machine # 11 Intake & Output 05/15/18 05/16/18 05/17/18 06:59 06:59 06:59 Intake Total 520 3575 970 Output Total 2000 2350 900 Balance -1480 1225 70 Weight 100 kg 101.7 kg General appearance: PRESENT: no acute distress, cooperative, disheveled, obese Respiratory exam: PRESENT: decreased breath sounds, unlabored. ABSENT: accessory muscle use, rales, rhonchi, tachypnea, wheezes Cardiovascular exam: PRESENT: RRR. ABSENT: systolic murmur GI/Abdominal exam: PRESENT: normal bowel sounds, soft. ABSENT: guarding, rebound, tenderness Extremities exam: PRESENT: pedal edema Musculoskeletal exam: PRESENT: normal inspection. ABSENT: deformity Neurological exam: PRESENT: alert, awake, oriented to person, oriented to place , oriented to situation Skin exam: PRESENT: dry, warm Results Laboratory Results: 05/14/18 05:00 05/14/18 05:00 05/14/18 04:37 Throat Throat Culture - Final NORMAL ELAINE Impressions: Chest X-Ray 05/13/18 23:03 IMPRESSION: Left lung base consolidation. Head CT 05/14/18 00:48 IMPRESSION: Atrophy and chronic small vessel ischemic changes with no acute intracranial abnormality. Assessment & Plan - Diagnosis (1) HCAP (healthcare-associated pneumonia) Is this a current diagnosis for this admission?: Yes Plan: Is being treated with broad-spectrum antibiotics for bibasilar pneumonia. Cultures are pending. Will hope to de-escalate his coverage quickly. (2) Urinary tract infection Qualifiers: Urinary tract infection type: site unspecified Hematuria presence: without hematuria Qualified Code(s): N39.0 - Urinary tract infection, site not specified Is this a current diagnosis for this admission?: Yes Plan: Currently on broad-spectrum coverage. He has had a chronic indwelling Diaz which increases his risk of a resistant organism. Cultures are pending. (3) Chronic indwelling Diaz catheter Is this a current diagnosis for this admission?: Yes Plan: As noted above - Time Time Spent with patient: 15-24 minutes
[2018-05-16] MEDS: ACETAMINOPHEN 325 MG TABLET PO PRN (20:47)
[2018-05-16] MEDS: LEVOFLOXACIN 750 MG/D5W RTU 750 MG/150 ML RTUPB IV SCH (22:29)
[2018-05-16] MEDS ORDERED: CEFEPIME 2 GM/D5W RTU 2 GM/50 ML RTUPB IV ONE (23:42)
[2018-05-17] MEDS: CEFEPIME 2 GM/D5W RTU 2 GM/50 ML RTUPB IV SCH ×2 (00:06→12:29)
[2018-05-17] MEDS: MIRTAZAPINE 15 MG TABLET PO PRN ×2 (00:49→22:27)
[2018-05-17] MEDS: ENOXAPARIN SODIUM INJ 40 MG/0.4 ML DISP.SYRIN SUBCUT SCH (12:31)
[2018-05-17] MEDS: GUAIFENESIN 600 MG TABLET.SA PO SCH ×2 (12:31→22:35)
[2018-05-17] MEDS: ACETAMINOPHEN 325 MG TABLET PO PRN ×2 (14:13→22:27)
--- NOTE | 2018-05-17 16:04 | PDOC PROGRESS REPORT ---
Subjective Progress Note for:: 05/17/18 Subjective:: No adverse events overnight. No new complaints. He said he felt like he got a decent night sleep last night. I talked to him about his living situation, and he said he lives with his daughter and his son-in-law. He said neither 1 of them works and they basically live off of him because he receives about $5000 a month in welfare benefits. He became a bit tearful when he was talking about this. Reason For Visit: HCAP Physical Exam Vital Signs: Temp Pulse Resp BP Pulse Ox 98.9 F 84 17 129/78 H 99 05/17/18 15:30 05/17/18 15:30 05/17/18 15:30 05/17/18 15:30 05/17/18 15:30 Pulse Oximeter Continuous Start: 05/14/18 03: 47 Freq: RTQ4 Status: Active Document 05/17/18 12:10 [facility] (Rec: 05/17/18 12:10 [facility] [id number]) Pulse Oximetry Assessment Oxygen Saturation (92-100) 99 Oxygen Delivery Method Room Air Equipment Usage Equipment in Use Continuous SpO2 Machine # 11 Intake & Output 05/16/18 05/17/18 05/18/18 06:59 06:59 06:59 Intake Total 3575 1770 Output Total 2350 2200 Balance 1225 -430 Weight 101.7 kg 98.1 kg General appearance: PRESENT: no acute distress, cooperative, disheveled, obese Respiratory exam: PRESENT: decreased breath sounds, unlabored. ABSENT: accessory muscle use, rales, rhonchi, tachypnea, wheezes Cardiovascular exam: PRESENT: RRR. ABSENT: systolic murmur GI/Abdominal exam: PRESENT: normal bowel sounds, soft. ABSENT: guarding, rebound, tenderness Extremities exam: PRESENT: pedal edema Musculoskeletal exam: PRESENT: normal inspection. ABSENT: deformity Neurological exam: PRESENT: alert, awake, oriented to person, oriented to place , oriented to situation Skin exam: PRESENT: dry, warm Results Laboratory Results: 05/14/18 05:00 05/14/18 05:00 05/14/18 04:37 Throat Throat Culture - Final NORMAL ELAINE Impressions: Chest X-Ray 05/13/18 23:03 IMPRESSION: Left lung base consolidation. Head CT 05/14/18 00:48 IMPRESSION: Atrophy and chronic small vessel ischemic changes with no acute intracranial abnormality. Assessment & Plan - Diagnosis (1) HCAP (healthcare-associated pneumonia) Is this a current diagnosis for this admission?: Yes Plan: I stopped his cefepime and his Levaquin because I had to switch the antibiotic to cover his urinary tract infection. He was resistant to all cephalosporins and had resistance to ciprofloxacin so figured Levaquin probably was not a work that well either. I had to put him on Zosyn so I did not think it necessary to keep him on either cefepime or Levaquin for the pneumonia. At any rate he seems to be doing quite well. (2) Urinary tract infection Qualifiers: Urinary tract infection type: site unspecified Hematuria presence: without hematuria Qualified Code(s): N39.0 - Urinary tract infection, site not specified Is this a current diagnosis for this admission?: Yes Plan: He does have an indwelling Diaz catheter and a history of resistant organisms. It turns out that this is a ESBL producing Klebsiella pneumoniae. As noted above started Zosyn and stopped his cefepime and Levaquin. (3) Chronic indwelling Diaz catheter Is this a current diagnosis for this admission?: Yes Plan: As noted above - Time Time Spent with patient: 15-24 minutes Disposition: He does not seem to be too happy about his social situation, but he needs people to help take care of them. He is going to have to be here getting IV antibiotics for a few more days and so hopefully, with a better solution for him and he does not want to return home with his daughter and son-in-law.
[2018-05-17] MEDS: PIPERACILLIN SODIUM/TAZOBACTAM 3.375 GM in NORMAL SALINE 100 ML IV SCH ×2 (17:13→23:37)
[2018-05-18] MEDS: PIPERACILLIN SODIUM/TAZOBACTAM 3.375 GM in NORMAL SALINE 100 ML IV SCH ×4 (05:43→23:01)
[2018-05-18] MEDS: ENOXAPARIN SODIUM INJ 40 MG/0.4 ML DISP.SYRIN SUBCUT SCH (09:15)
[2018-05-18] MEDS: GUAIFENESIN 600 MG TABLET.SA PO SCH ×2 (09:15→22:57)
[2018-05-18 09:18] LABS: HEMATOCRIT 39.3 % (37.9-51.0); HEMOGLOBIN 13.3 g/dL (13.5-17.0); MEAN CORPUSCULAR HEMOGLOBIN 31.9 pg (27.0-33.4); MEAN CORPUSCULAR HGB CONC 33.8 g/dL (32.0-36.0); MEAN CORPUSCULAR VOLUME 94 fl (80-97); PLATELET COUNT 163 10^3/uL (150-450); RED BLOOD COUNT 4.16 10^6/uL (4.35-5.55); RED CELL DISTRIBUTION WIDTH 14.1 % (11.5-14.0); WHITE BLOOD COUNT 6.9 10^3/uL (4.0-10.5)
[2018-05-18] MEDS: ACETAMINOPHEN 325 MG TABLET PO PRN ×2 (09:20→22:57)
[2018-05-18 09:40] LABS: ANION GAP 13 (5-19); BLOOD UREA NITROGEN 12 mg/dL (7-20); CALCIUM 8.9 mg/dL (8.4-10.2); CARBON DIOXIDE 20 mmol/L (22-30); CHLORIDE 110 mmol/L (98-107); GLUCOSE 150 mg/dL (75-110); POTASSIUM 4.3 mmol/L (3.6-5.0); SODIUM 143.3 mmol/L (137-145)
--- NOTE | 2018-05-18 16:46 | PDOC PROGRESS REPORT ---
Subjective Progress Note for:: 05/18/18 Subjective:: No adverse events overnight. No new complaints. He said he felt like he got a decent night sleep last night. No fevers. He has been comfortable for oxygen. He was able to get up into the chair of the bed today. He was open to physical therapy and the possibility of going to a retirement facility for rehab after he leaves the hospital. Reason For Visit: HCAP Physical Exam Vital Signs: Temp Pulse Resp BP Pulse Ox 99.0 F 85 19 110/55 L 98 05/18/18 15:22 05/18/18 15:22 05/18/18 15:22 05/18/18 15:22 05/18/18 15:44 Pulse Oximeter Continuous Start: 05/14/18 03: 47 Freq: RTQ4 Status: Active Document 05/18/18 15:44 [facility] (Rec: 05/18/18 15:44 [facility] [id number]) Pulse Oximetry Assessment Oxygen Saturation (92-100) 98 Oxygen Delivery Method Room Air Fraction of Inspired Oxygen (FIO2) 21 Equipment Usage Equipment in Use Continuous SpO2 Machine # 11 Intake & Output 05/17/18 05/18/18 05/19/18 06:59 06:59 06:59 Intake Total 1770 1227 35 Output Total 2200 1400 Balance -430 -173 35 Weight 98.1 kg 99 kg General appearance: PRESENT: no acute distress, cooperative, disheveled, obese Respiratory exam: PRESENT: decreased breath sounds, unlabored. ABSENT: accessory muscle use, rales, rhonchi, tachypnea, wheezes Cardiovascular exam: PRESENT: RRR. ABSENT: systolic murmur GI/Abdominal exam: PRESENT: normal bowel sounds, soft. ABSENT: guarding, rebound, tenderness Extremities exam: PRESENT: pedal edema Musculoskeletal exam: PRESENT: normal inspection. ABSENT: deformity Neurological exam: PRESENT: alert, awake, oriented to person, oriented to place , oriented to situation Skin exam: PRESENT: dry, warm Results Laboratory Results: 05/18/18 09:00 05/18/18 09:00 05/18/18 05/18/18 09:00 09:00 WBC 6.9 RBC 4.16 L Hgb 13.3 L Hct 39.3 MCV 94 MCH 31.9 MCHC 33.8 RDW 14.1 H Plt Count 163 Sodium 143.3 Potassium 4.3 Chloride 110 H Carbon Dioxide 20 L Anion Gap 13 BUN 12 Creatinine 1.39 H Est GFR ( Amer) > 60 Est GFR (Non-Af Amer) 51 L Glucose 150 H Calcium 8.9 Impressions: Chest X-Ray 05/13/18 23:03 IMPRESSION: Left lung base consolidation. Head CT 05/14/18 00:48 IMPRESSION: Atrophy and chronic small vessel ischemic changes with no acute intracranial abnormality. Assessment & Plan - Diagnosis (1) HCAP (healthcare-associated pneumonia) Is this a current diagnosis for this admission?: Yes Plan: I stopped his cefepime and his Levaquin because I had to switch the antibiotic to cover his urinary tract infection. He was resistant to all cephalosporins and had resistance to ciprofloxacin so figured Levaquin probably was not a work that well either. I had to put him on Zosyn so I did not think it necessary to keep him on either cefepime or Levaquin for the pneumonia. At any rate he seems to be doing quite well. (2) Urinary tract infection Qualifiers: Urinary tract infection type: site unspecified Hematuria presence: without hematuria Qualified Code(s): N39.0 - Urinary tract infection, site not specified Is this a current diagnosis for this admission?: Yes Plan: He does have an indwelling Diaz catheter and a history of resistant organisms. It turns out that this is a ESBL producing Klebsiella pneumoniae. As noted above started Zosyn and stopped his cefepime and Levaquin. (3) Chronic indwelling Diaz catheter Is this a current diagnosis for this admission?: Yes Plan: As noted above - Time Time Spent with patient: 15-24 minutes
[2018-05-18] MEDS: MIRTAZAPINE 15 MG TABLET PO PRN (23:01)
[2018-05-19] MEDS: PIPERACILLIN SODIUM/TAZOBACTAM 3.375 GM in NORMAL SALINE 100 ML IV SCH ×3 (06:23→21:07)
[2018-05-19] MEDS: GUAIFENESIN 600 MG TABLET.SA PO SCH ×2 (09:31→21:07)
[2018-05-19] MEDS: ENOXAPARIN SODIUM INJ 40 MG/0.4 ML DISP.SYRIN SUBCUT SCH (09:31)
--- NOTE | 2018-05-19 17:40 | PDOC PROGRESS REPORT ---
Subjective Progress Note for:: 05/19/18 Subjective:: No adverse events overnight. No new complaints. He said he felt like he got a decent night sleep last night. No fevers. He has been comfortable off oxygen. Reason For Visit: HCAP Physical Exam Vital Signs: Temp Pulse Resp BP Pulse Ox 99.5 F 87 15 112/64 96 05/19/18 15:34 05/19/18 15:34 05/19/18 15:34 05/19/18 15:34 05/19/18 16:35 Pulse Oximeter Continuous Start: 05/14/18 03: 47 Freq: RTQ4 Status: Active Document 05/19/18 16:35 [facility] (Rec: 05/19/18 16:36 [facility] [id number]) Pulse Oximetry Assessment Oxygen Saturation (92-100) 96 Oxygen Delivery Method Room Air Equipment Usage Equipment in Use Continuous SpO2 Machine # 11 Intake & Output 05/18/18 05/19/18 05/20/18 06:59 06:59 06:59 Intake Total 1227 988 31 Output Total 1400 1275 Balance -173 -287 31 Weight 99 kg 97.6 kg General appearance: PRESENT: no acute distress, cooperative, disheveled, obese Respiratory exam: PRESENT: decreased breath sounds, unlabored. ABSENT: accessory muscle use, rales, rhonchi, tachypnea, wheezes Cardiovascular exam: PRESENT: RRR. ABSENT: systolic murmur GI/Abdominal exam: PRESENT: normal bowel sounds, soft. ABSENT: guarding, rebound, tenderness Extremities exam: PRESENT: pedal edema Musculoskeletal exam: PRESENT: normal inspection. ABSENT: deformity Neurological exam: PRESENT: alert, awake, oriented to person, oriented to place , oriented to situation Skin exam: PRESENT: dry, warm Results Laboratory Results: 05/18/18 09:00 05/18/18 09:00 05/14/18 03:20 Blood Blood Culture - Final NO GROWTH IN 5 DAYS Impressions: Chest X-Ray 05/13/18 23:03 IMPRESSION: Left lung base consolidation. Head CT 05/14/18 00:48 IMPRESSION: Atrophy and chronic small vessel ischemic changes with no acute intracranial abnormality. Assessment & Plan - Diagnosis (1) HCAP (healthcare-associated pneumonia) Is this a current diagnosis for this admission?: Yes Plan: I stopped his cefepime and his Levaquin because I had to switch the antibiotic to cover his urinary tract infection. He was resistant to all cephalosporins and had resistance to ciprofloxacin so figured Levaquin probably was not a work that well either. I had to put him on Zosyn so I did not think it necessary to keep him on either cefepime or Levaquin for the pneumonia. At any rate he seems to be doing quite well. (2) Urinary tract infection Qualifiers: Urinary tract infection type: site unspecified Hematuria presence: without hematuria Qualified Code(s): N39.0 - Urinary tract infection, site not specified Is this a current diagnosis for this admission?: Yes Plan: He does have an indwelling Diaz catheter and a history of resistant organisms. It turns out that this is a ESBL producing Klebsiella pneumoniae. As noted above started Zosyn and stopped his cefepime and Levaquin. He will probably complete a course of antibiotics in the hospital before having to go to rehab. (3) Chronic indwelling Diaz catheter Is this a current diagnosis for this admission?: Yes Plan: As noted above - Time Time Spent with patient: 15-24 minutes
[2018-05-19] MEDS: MIRTAZAPINE 15 MG TABLET PO PRN (21:07)
[2018-05-19] MEDS: ACETAMINOPHEN 325 MG TABLET PO PRN (21:07)
[2018-05-20] MEDS: PIPERACILLIN SODIUM/TAZOBACTAM 3.375 GM in NORMAL SALINE 100 ML IV SCH ×4 (01:00→18:24)
[2018-05-20] MEDS: ENOXAPARIN SODIUM INJ 40 MG/0.4 ML DISP.SYRIN SUBCUT SCH (11:31)
[2018-05-20] MEDS: GUAIFENESIN 600 MG TABLET.SA PO SCH ×2 (11:31→21:59)
[2018-05-20] MEDS: ACETAMINOPHEN 325 MG TABLET PO PRN (16:43)
--- NOTE | 2018-05-20 17:05 | PDOC PROGRESS REPORT ---
Subjective Progress Note for:: 05/20/18 Subjective:: No adverse events overnight. No new complaints. He said he felt like he got a decent night sleep last night. No fevers. He has been comfortable off oxygen. He gets a little tearful sometimes whenever he talks about what he is going to do when he leaves the hospital. Reason For Visit: HCAP Physical Exam Vital Signs: Temp Pulse Resp BP Pulse Ox 99.1 F 87 18 111/64 99 05/20/18 15:44 05/20/18 15:44 05/20/18 15:44 05/20/18 15:44 05/20/18 15:44 Pulse Oximeter Continuous Start: 05/14/18 03: 47 Freq: RTQ4 Status: Active Document 05/20/18 12:00 [facility] (Rec: 05/20/18 14:36 [facility] [id number]) Pulse Oximetry Assessment Oxygen Saturation (92-100) 96 Equipment Usage Equipment Standby Continuous SpO2 Machine # 11 Intake & Output 05/19/18 05/20/18 05/21/18 06:59 06:59 06:59 Intake Total 988 965 649 Output Total 1275 1400 675 Balance -287 -435 -26 Weight 97.6 kg 97.2 kg General appearance: PRESENT: no acute distress, cooperative, disheveled, obese Respiratory exam: PRESENT: decreased breath sounds, unlabored. ABSENT: accessory muscle use, rales, rhonchi, tachypnea, wheezes Cardiovascular exam: PRESENT: RRR. ABSENT: systolic murmur GI/Abdominal exam: PRESENT: normal bowel sounds, soft. ABSENT: guarding, rebound, tenderness Extremities exam: PRESENT: pedal edema Musculoskeletal exam: PRESENT: normal inspection. ABSENT: deformity Neurological exam: PRESENT: alert, awake, oriented to person, oriented to place , oriented to situation Skin exam: PRESENT: dry, warm Results Laboratory Results: 05/18/18 09:00 05/18/18 09:00 Impressions: Chest X-Ray 05/13/18 23:03 IMPRESSION: Left lung base consolidation. Head CT 05/14/18 00:48 IMPRESSION: Atrophy and chronic small vessel ischemic changes with no acute intracranial abnormality. Assessment & Plan - Diagnosis (1) HCAP (healthcare-associated pneumonia) Is this a current diagnosis for this admission?: Yes Plan: I stopped his cefepime and his Levaquin because I had to switch the antibiotic to cover his urinary tract infection. He was resistant to all cephalosporins and had resistance to ciprofloxacin so figured Levaquin probably was not a work that well either. I had to put him on Zosyn so I did not think it necessary to keep him on either cefepime or Levaquin for the pneumonia. At any rate he seems to be doing quite well. (2) Urinary tract infection Qualifiers: Urinary tract infection type: site unspecified Hematuria presence: without hematuria Qualified Code(s): N39.0 - Urinary tract infection, site not specified Is this a current diagnosis for this admission?: Yes Plan: He does have an indwelling Diaz catheter and a history of resistant organisms. It turns out that this is a ESBL producing Klebsiella pneumoniae. As noted above started Zosyn and stopped his cefepime and Levaquin. He will probably complete a course of antibiotics in the hospital before having to go to rehab. (3) Chronic indwelling Diaz catheter Is this a current diagnosis for this admission?: Yes Plan: As noted above - Time Time Spent with patient: 15-24 minutes
[2018-05-20] MEDS: MIRTAZAPINE 15 MG TABLET PO PRN (21:59)
[2018-05-21] MEDS: PIPERACILLIN SODIUM/TAZOBACTAM 3.375 GM in NORMAL SALINE 100 ML IV SCH ×5 (00:32→23:03)
[2018-05-21] MEDS: GUAIFENESIN 600 MG TABLET.SA PO SCH ×2 (09:01→23:04)
[2018-05-21] MEDS: ENOXAPARIN SODIUM INJ 40 MG/0.4 ML DISP.SYRIN SUBCUT SCH (09:02)
--- NOTE | 2018-05-21 15:36 | PDOC PROGRESS REPORT ---
Subjective Progress Note for:: 05/21/18 Subjective:: No adverse events overnight. No new complaints. He has been sleeping and eating well. No fevers. He has been comfortable off oxygen. He gets a little tearful sometimes whenever he talks about what he is going to do when he leaves the hospital. He now tells me that he wants to be in a [facility]pc facility for rehab is going to be closer to the new home that his daughter has purchased, which is near the [facility] border. He does not know the name of the town, but he is going to find out from his daughter. Reason For Visit: HCAP Physical Exam Vital Signs: Temp Pulse Resp BP Pulse Ox 97.9 F 87 18 137/86 H 100 05/21/18 03:50 05/21/18 07:48 05/21/18 07:48 05/21/18 07:48 05/21/18 07:48 Pulse Oximeter Continuous Start: 05/14/18 03: 47 Freq: RTQ4 Status: Complete Document 05/21/18 03:03 [facility] (Rec: 05/21/18 03:04 [facility] [id number]) Pulse Oximetry Assessment Oxygen Saturation (92-100) 97 Oxygen Delivery Method Room Air Fraction of Inspired Oxygen (FIO2) 21 Equipment Usage Equipment Standby Continuous SpO2 Machine # 11 Intake & Output 05/20/18 05/21/18 05/22/18 06:59 06:59 06:59 Intake Total 965 759 107 Output Total 1400 1550 Balance -435 -791 107 Weight 97.2 kg 97.2 kg General appearance: PRESENT: no acute distress, cooperative, disheveled, obese Respiratory exam: PRESENT: decreased breath sounds, unlabored. ABSENT: accessory muscle use, rales, rhonchi, tachypnea, wheezes Cardiovascular exam: PRESENT: RRR. ABSENT: systolic murmur GI/Abdominal exam: PRESENT: normal bowel sounds, soft. ABSENT: guarding, rebound, tenderness Extremities exam: PRESENT: pedal edema Musculoskeletal exam: PRESENT: normal inspection. ABSENT: deformity Neurological exam: PRESENT: alert, awake, oriented to person, oriented to place , oriented to situation Skin exam: PRESENT: dry, warm Results Laboratory Results: 05/18/18 09:00 05/18/18 09:00 Impressions: Chest X-Ray 05/13/18 23:03 IMPRESSION: Left lung base consolidation. Head CT 05/14/18 00:48 IMPRESSION: Atrophy and chronic small vessel ischemic changes with no acute intracranial abnormality. Assessment & Plan - Diagnosis (1) HCAP (healthcare-associated pneumonia) Is this a current diagnosis for this admission?: Yes Plan: I stopped his cefepime and his Levaquin because I had to switch the antibiotic to cover his urinary tract infection. He was resistant to all cephalosporins and had resistance to ciprofloxacin so figured Levaquin probably was not a work that well either. I had to put him on Zosyn so I did not think it necessary to keep him on either cefepime or Levaquin for the pneumonia. At any rate he seems to be doing quite well. (2) Urinary tract infection Qualifiers: Urinary tract infection type: site unspecified Hematuria presence: without hematuria Qualified Code(s): N39.0 - Urinary tract infection, site not specified Is this a current diagnosis for this admission?: Yes Plan: He does have an indwelling Diaz catheter and a history of resistant organisms. It turns out that this is a ESBL producing Klebsiella pneumoniae. As noted above started Zosyn and stopped his cefepime and Levaquin. He will probably complete a course of antibiotics in the hospital before having to go to rehab. At this point he needs 2 to 3 more days of Zosyn and then he can go to rehab. (3) Chronic indwelling Diaz catheter Is this a current diagnosis for this admission?: Yes Plan: As noted above - Time Time Spent with patient: 15-24 minutes
[2018-05-21] MEDS: ACETAMINOPHEN 325 MG TABLET PO PRN (23:04)
[2018-05-21] MEDS: MIRTAZAPINE 15 MG TABLET PO PRN (23:04)
[2018-05-22] MEDS: PIPERACILLIN SODIUM/TAZOBACTAM 3.375 GM in NORMAL SALINE 100 ML IV SCH ×4 (05:08→23:00)
[2018-05-22] MEDS: GUAIFENESIN 600 MG TABLET.SA PO SCH ×2 (10:51→22:57)
[2018-05-22] MEDS: ENOXAPARIN SODIUM INJ 40 MG/0.4 ML DISP.SYRIN SUBCUT SCH (10:51)
--- NOTE | 2018-05-22 15:02 | PDOC PROGRESS REPORT ---
Subjective Progress Note for:: 05/22/18 Subjective:: Mr. Sandoval was admitted for recurrent urinary tract infection with concomitant pneumonia. No acute event overnight. He has been eating well. No fever or chills overnight. Patient is currently completing his IV antibiotics for ESBL urinary tract infection. Reason For Visit: HCAP Physical Exam Vital Signs: Temp Pulse Resp BP Pulse Ox 98.5 F 82 17 140/93 H 98 05/22/18 11:06 05/22/18 11:06 05/22/18 11:06 05/22/18 11:06 05/22/18 11:06 Pulse Oximeter Continuous Start: 05/14/18 03: 47 Freq: RTQ4 Status: Complete Document 05/21/18 03:03 [facility] (Rec: 05/21/18 03:04 [facility] [id number]) Pulse Oximetry Assessment Oxygen Saturation (92-100) 97 Oxygen Delivery Method Room Air Fraction of Inspired Oxygen (FIO2) 21 Equipment Usage Equipment Standby Continuous SpO2 Machine # 11 Intake & Output 05/21/18 05/22/18 05/23/18 06:59 06:59 06:59 Intake Total 759 1837 Output Total 1550 1425 Balance -791 412 Weight 214 lb 4.629 oz 214 lb 11.684 oz General appearance: PRESENT: no acute distress, well-developed, well-nourished Head exam: PRESENT: atraumatic, normocephalic Eye exam: PRESENT: conjunctiva pink, EOMI, PERRLA. ABSENT: scleral icterus Ear exam: PRESENT: normal external ear exam Neck exam: ABSENT: carotid bruit, JVD, lymphadenopathy, thyromegaly Respiratory exam: PRESENT: clear to auscultation jack. ABSENT: rales, rhonchi, wheezes Cardiovascular exam: PRESENT: RRR. ABSENT: diastolic murmur, rubs, systolic murmur Pulses: PRESENT: normal dorsalis pedis pul Vascular exam: PRESENT: normal capillary refill GI/Abdominal exam: PRESENT: normal bowel sounds, soft. ABSENT: distended, guarding, mass, organolmegaly, rebound, tenderness Rectal exam: PRESENT: deferred Extremities exam: PRESENT: full ROM. ABSENT: calf tenderness, clubbing, pedal edema Neurological exam: PRESENT: alert, oriented to time Skin exam: PRESENT: dry, intact, warm. ABSENT: cyanosis, rash Results Laboratory Results: 05/18/18 09:00 05/18/18 09:00 Impressions: Chest X-Ray 05/13/18 23:03 IMPRESSION: Left lung base consolidation. Head CT 05/14/18 00:48 IMPRESSION: Atrophy and chronic small vessel ischemic changes with no acute intracranial abnormality. Assessment & Plan - Diagnosis (1) Catheter-associated urinary tract infection Qualifiers: Indwelling urinary catheter type: indwelling urethral catheter Is this a current diagnosis for this admission?: Yes Plan: Patient's urine culture grew ESBL. He needs to be on IV Zosyn for at least 7 days. He will complete his last dose on May 24 in the evening. Patient does want to go home tomorrow because they are moving to [place]. Discussed importance of completing IV antibiotics. (2) HCAP (healthcare-associated pneumonia) Is this a current diagnosis for this admission?: Yes Plan: Result. Patient was initially on cefepime and Levaquin. Completing IV Zosyn for ESBL UTI.
[2018-05-22] MEDS: ACETAMINOPHEN 325 MG TABLET PO PRN (22:57)
[2018-05-22] MEDS: MIRTAZAPINE 15 MG TABLET PO PRN (22:57)
[2018-05-23] MEDS: PIPERACILLIN SODIUM/TAZOBACTAM 3.375 GM in NORMAL SALINE 100 ML IV SCH ×3 (05:15→17:26)
[2018-05-23] MEDS: ACETAMINOPHEN 325 MG TABLET PO PRN ×2 (08:47→20:08)
[2018-05-23] MEDS: GUAIFENESIN 600 MG TABLET.SA PO SCH ×2 (09:13→22:49)
[2018-05-23] MEDS: ENOXAPARIN SODIUM INJ 40 MG/0.4 ML DISP.SYRIN SUBCUT SCH (09:13)
--- NOTE | 2018-05-23 14:18 | RADIOLOGY REPORT (SQ) ---
EXAM DESCRIPTION: HAND LEFT 2 VIEWS COMPLETED DATE/TIME: 05/23/2018 2:06 pm REASON FOR STUDY: SWELLING AND PAIN COMPARISON: None. EXAM PARAMETERS: NUMBER OF VIEWS: Three views. TECHNIQUE: AP, lateral and oblique radiographic images acquired of the left hand. LIMITATIONS: None. FINDINGS: MINERALIZATION: Mild osteopenia. BONES: No acute fracture or dislocation. Deformity of the head of the 2nd metacarpal. Small osseous densities adjacent to the ulnar styloid. No worrisome bone lesions. JOINTS: No effusions. SOFT TISSUES: No soft tissue swelling. No foreign body. OTHER: No other significant finding. IMPRESSION: CHRONIC CHANGES. DEFORMITY OF THE HEAD OF THE 2ND METACARPAL PROBABLY DUE TO OLD TRAUMA . NO ACUTE FINDINGS. TECHNICAL DOCUMENTATION: JOB ID: [id number] [employer]- All Rights Reserved Reading location - IP/workstation name: [email or web address]
--- NOTE | 2018-05-23 15:47 | PDOC PROGRESS REPORT ---
Subjective Progress Note for:: 05/23/18 Subjective:: No acute event overnight. He has been eating well. No fever or chills overnight. Patient is just completing his IV antibiotics for ESBL urinary tract infection. He says that he thinks his left hand is slightly swollen. He says that he mentioned in the ER that he fell last week and landed on his left hand. He says this was not imaged previously. Reason For Visit: HCAP Physical Exam Vital Signs: Temp Pulse Resp BP Pulse Ox 98.4 F 80 18 128/79 H 99 05/23/18 12:00 05/23/18 12:00 05/23/18 12:00 05/23/18 12:00 05/23/18 12:00 Pulse Oximeter Continuous Start: 05/14/18 03: 47 Freq: RTQ4 Status: Complete Document 05/21/18 03:03 [facility] (Rec: 05/21/18 03:04 [facility] [id number]) Pulse Oximetry Assessment Oxygen Saturation (92-100) 97 Oxygen Delivery Method Room Air Fraction of Inspired Oxygen (FIO2) 21 Equipment Usage Equipment Standby Continuous SpO2 Machine # 11 Intake & Output 05/22/18 05/23/18 05/24/18 06:59 06:59 06:59 Intake Total 1837 793 24 Output Total 1425 1975 Balance 412 -1182 24 Weight 214 lb 11.684 oz 217 lb 13.067 oz General appearance: PRESENT: no acute distress Head exam: PRESENT: atraumatic, normocephalic Eye exam: PRESENT: conjunctiva pink, EOMI, PERRLA. ABSENT: scleral icterus Ear exam: PRESENT: normal external ear exam Neck exam: ABSENT: carotid bruit, JVD, lymphadenopathy, thyromegaly Respiratory exam: PRESENT: clear to auscultation jack. ABSENT: rales, rhonchi, wheezes Cardiovascular exam: PRESENT: RRR. ABSENT: diastolic murmur, rubs, systolic murmur Pulses: PRESENT: normal dorsalis pedis pul Vascular exam: PRESENT: normal capillary refill GI/Abdominal exam: PRESENT: normal bowel sounds, soft. ABSENT: distended, guarding, mass, organolmegaly, rebound, tenderness Rectal exam: PRESENT: deferred Extremities exam: PRESENT: other - Minimal swelling noted on the left hand over the second to third metacarpal region Neurological exam: PRESENT: alert, awake, oriented to person, oriented to place , oriented to time, oriented to situation, CN II-XII grossly intact. ABSENT: motor sensory deficit Psychiatric exam: PRESENT: appropriate affect, normal mood. ABSENT: homicidal ideation, suicidal ideation Results Laboratory Results: 05/18/18 09:00 05/18/18 09:00 Impressions: Chest X-Ray 05/13/18 23:03 IMPRESSION: Left lung base consolidation. Head CT 05/14/18 00:48 IMPRESSION: Atrophy and chronic small vessel ischemic changes with no acute intracranial abnormality. Hand X-Ray 05/23/18 00:00 IMPRESSION: CHRONIC CHANGES. DEFORMITY OF THE HEAD OF THE 2ND METACARPAL PROBABLY DUE TO OLD TRAUMA. NO ACUTE FINDINGS. Assessment & Plan - Diagnosis (1) Catheter-associated urinary tract infection Qualifiers: Indwelling urinary catheter type: indwelling urethral catheter Is this a current diagnosis for this admission?: Yes Plan: Patient's urine culture grew ESBL. He needs to be on IV Zosyn for at least 7 days. He will complete his last dose on May 24 in the evening. (2) HCAP (healthcare-associated pneumonia) Is this a current diagnosis for this admission?: Yes Plan: Resolved. Patient was initially on cefepime and Levaquin. Completing IV Zosyn for ESBL UTI. (3) Swelling of left hand Is this a current diagnosis for this admission?: Yes Plan: There is minimal localized swelling over the left hand. Patient did report that he fell last week and landed on his left hand. Will order for a left hand x -ray to rule out fractures. - Time Time Spent with patient: 15-24 minutes
[2018-05-24] MEDS: MIRTAZAPINE 15 MG TABLET PO PRN (01:07)
[2018-05-24] MEDS: PIPERACILLIN SODIUM/TAZOBACTAM 3.375 GM in NORMAL SALINE 100 ML IV SCH ×3 (01:08→11:25)
[2018-05-24] MEDS: GUAIFENESIN 600 MG TABLET.SA PO SCH (09:03)
[2018-05-24] MEDS: ENOXAPARIN SODIUM INJ 40 MG/0.4 ML DISP.SYRIN SUBCUT SCH (09:03)
[2018-05-24] MEDS ORDERED: PIPERACILLIN SODIUM/TAZOBACTAM 3.375 GM in NORMAL SALINE 100 ML IV ONE ×2 (15:00→18:00)
[2018-05-24 18:28] VITALS: BP 114/76
--- NOTE | 2018-05-25 18:19 | PDOC DISCHARGE SUMMARY ---
General - Admit/Disc Date/PCP Admission Date/Primary Care Provider: 05/14/18 03:17 Discharge Date: 05/25/18 - Discharge Diagnosis (1) Catheter-associated urinary tract infection Is this a current diagnosis for this admission?: Yes (2) HCAP (healthcare-associated pneumonia) Is this a current diagnosis for this admission?: Yes (3) Swelling of left hand Is this a current diagnosis for this admission?: Yes - Additional Information Resuscitation Status: Full Code Discharge Diet: As Tolerated Discharge Activity: Activity As Tolerated Home Medications: Amlodipine Besylate [Norvasc 10 mg Tablet] 10 mg PO DAILY 05/14/18 Aspirin [Ecotrin 81 mg EC Tablet] 81 mg PO DAILY 05/14/18 Atorvastatin Calcium [Lipitor 40 mg Tablet] 40 mg PO QHS 05/14/18 Gabapentin [Neurontin 100 mg Capsule] 100 mg PO Q8HP PRN 05/14/18 Losartan Potassium [Cozaar 25 mg Tablet] 25 mg PO DAILY 05/14/18 Metoprolol Tartrate [Lopressor 25 mg Tablet] 25 mg PO Q12 05/14/18 Mirtazapine [Remeron 15 mg Tablet] 7.5 mg PO HSP PRN 05/14/18 History of Present Illness History of Present Illness: MARCELLA PERKINS is a 67 year old male with a past medical history of neurogenic bladder and chronic indwelling catheter who comes to the emergency department complaining of "didn't feel good". Patient tells me until yesterday he was doing at his baseline, today in the morning he was feeling sick, this progresses throughout the day, by 9 PM he was feeling very weak, was hard to walk, and noticed that his voice was changing, is "rough" and deep. Denies shortness of breath, he had minimal cough during the day, denies phlegm, he is having mild sore throat. He denies wheezing, fever, chills, chest pain, abdominal pain. Patient has a chronic indwelling catheter for the last 8 years secondary to ureteral stricture and neurogenic bladder, Diaz is changed once a month, last a week ago. Tells me that his urine is always infected, is not on chronic antibiotics, last urinary infection long ago. Times feels dysuria on and off, denies hematuria. Has chronic left lower extremity weakness secondary to back problems. Initially in the emergency department was tachycardic P1 111, R 23, O2 sat 100% on room air. Chest x-ray positive for left lower lobe pneumonia and a urinalysis positive for infection. Ordered 2 L of IV fluids and IV antibiotic. Hospital Course Hospital Course: Mr. Perkins was admitted for healthcare associated pneumonia and catheter associated urinary tract infection. He was initially on cefepime and Levaquin. His urine culture grew ESBL. Blood cultures are negative. He was switched to Zosyn and completed 7 days of antibiotic therapy. This was completed and patient was deemed stable for discharge. Patient will be going home with his daughter to [place]. Physical Exam Vital Signs: Temp Pulse Resp BP Pulse Ox 99.6 F 79 16 114/76 100 05/24/18 18:23 05/24/18 18:23 05/24/18 18:23 05/24/18 18:23 05/24/18 18:23 Pulse Oximeter Continuous Start: 05/14/18 03: 47 Freq: RTQ4 Status: Complete Document 05/21/18 03:03 [facility] (Rec: 05/21/18 03:04 [facility] [id number]) Pulse Oximetry Assessment Oxygen Saturation (92-100) 97 Oxygen Delivery Method Room Air Fraction of Inspired Oxygen (FIO2) 21 Equipment Usage Equipment Standby Continuous SpO2 Machine # 11 Intake & Output 05/24/18 05/25/18 05/26/18 06:59 06:59 06:59 Intake Total 1922 1492 Output Total 1350 650 Balance 572 842 Weight 216 lb 4.375 oz General appearance: PRESENT: no acute distress, well-developed, well-nourished Head exam: PRESENT: atraumatic, normocephalic Eye exam: PRESENT: conjunctiva pink, EOMI, PERRLA. ABSENT: scleral icterus Neck exam: ABSENT: carotid bruit, JVD, lymphadenopathy, thyromegaly Respiratory exam: PRESENT: clear to auscultation jack. ABSENT: rales, rhonchi, wheezes Cardiovascular exam: PRESENT: RRR. ABSENT: diastolic murmur, rubs, systolic murmur Pulses: PRESENT: normal dorsalis pedis pul Vascular exam: PRESENT: normal capillary refill GI/Abdominal exam: PRESENT: normal bowel sounds, soft. ABSENT: distended, guarding, mass, organolmegaly, rebound, tenderness Rectal exam: PRESENT: deferred Neurological exam: PRESENT: alert, awake, oriented to person, oriented to place , oriented to time, oriented to situation, CN II-XII grossly intact. ABSENT: motor sensory deficit Results Laboratory Results: 05/18/18 09:00 05/18/18 09:00 Impressions: Chest X-Ray 05/13/18 23:03 IMPRESSION: Left lung base consolidation. Head CT 05/14/18 00:48 IMPRESSION: Atrophy and chronic small vessel ischemic changes with no acute intracranial abnormality. Hand X-Ray 05/23/18 00:00 IMPRESSION: CHRONIC CHANGES. DEFORMITY OF THE HEAD OF THE 2ND METACARPAL PROBABLY DUE TO OLD TRAUMA. NO ACUTE FINDINGS. Qualifiers - * PATIENT BEING DISCHARGED WITH ANY OF THE FOLLOWING DIAGNOSIS: No
== END 2018-05-24 19:32 | disposition home or self-care (01) | DRG 698 ==
LOC: ER 22:12 → EH 05-14 03:17 → 4N 05-14 19:51
PROVIDERS: ADMIT Internal Medicine; ATTEND Internal Medicine
PROC: 3E0F73Z Introduction of Anti-inflammatory into Respiratory Tract, Via Natural or Artificial Opening (ICD-10-PCS; principal; 2018-05-14)
DX: T83.511A Infection and inflammatory reaction due to indwelling urethral catheter, initial encounter (principal); J18.1 Lobar pneumonia, unspecified organism; N39.0 Urinary tract infection, site not specified; B96.1 Klebsiella pneumoniae [K. pneumoniae] as the cause of diseases classified elsewhere; Y84.6 Urinary catheterization as the cause of abnormal reaction of the patient, or of later complication, without mention of misadventure at the time of the procedure; I10 Essential (primary) hypertension; M79.89 Other specified soft tissue disorders; F10.20 Alcohol dependence, uncomplicated; E66.9 Obesity, unspecified; Z68.31 Body mass index [BMI] 31.0-31.9, adult; Z79.899 Other long term (current) drug therapy; Z87.891 Personal history of nicotine dependence; Z79.82 Long term (current) use of aspirin; Z88.3 Allergy status to other anti-infective agents; Z88.2 Allergy status to sulfonamides; Z59.0 Homelessness
CPT/HCPCS: 36415; 70450; 71045; 80048; 80053; 81001; 82550; 82803; 83605; 83690; 84484; 85025; 85027; 85610; 87040; 87070; 87086; 87088; 87186; 87880; 93005; 93010; 94762; 96365; 99285; G8978-GP; G8979-GP; G8980-GP; J0692; J1650; J1956; J2543; J2550; J3490; J7030

== ENCOUNTER 2018-05-28 22:42 | Emergency (ER) | payer MEDICARE ==
--- NOTE | 2018-05-28 23:18 | ER Document Report ---
ED Medical Screen (RME) - General Chief Complaint: Urinary Retention Stated Complaint: UNABLE TO USE RESTROOM Time Seen by Provider: 05/28/18 23:13 Mode of Arrival: Wheelchair Information source: Patient Notes: Patient is a 67-year-old male who presents with chief complaint of catheter problem. Patient reports he has had a catheter in for approximately 15 years, catheter was replaced this morning at [facility] at 11 AM, patient reports catheter has not drained since then. Exam: Tenderness to palpation over urinary bladder, Diaz bag is empty. I have greeted and performed a rapid initial assessment of this patient. A comprehensive ED assessment and evaluation of the patient, analysis of test results and completion of the medical decision making process will be conducted by additional ED providers. Dictation of this chart was performed using voice recognition software; therefore, there may be some unintended grammatical errors. TRAVEL OUTSIDE OF THE [place] IN LAST 30 DAYS: No - Related Data Allergies/Adverse Reactions: erythromycin base Allergy (Verified 05/02/18 14:57) Sulfa (Sulfonamide Antibiotics) Allergy (Verified 05/02/18 14:57) Past Medical History - Social History Frequency of alcohol use: Social Drug Abuse: None - Past Medical History Cardiac Medical History: Reports: Hx Hypertension Renal/ Medical History: Denies: Hx Peritoneal Dialysis Psychiatric Medical History: Reports: Hx Depression Past Surgical History: Reports: Hx Appendectomy - Reports as of 05/07/2018, Hx Orthopedic Surgery - Back 2, Other - 2 urological surgeries - Immunizations History of Influenza Vaccine for 07/2017 - 12/2017 Season: No
[2018-05-28] MEDS ORDERED: DIAZEPAM 5 MG TABLET PO ONE (23:59)
[2018-05-29] MEDS ORDERED: LIDOCAINE 2% URO-JET 5 ML KIT MM ONE
[2018-05-29 03:48] LABS: APPEARANCE,URINE TURBID; BILIRUBIN,URINE NEGATIVE (NEGATIVE); COLOR,URINE YELLOW; GLUCOSE, URINE NEGATIVE (NEGATIVE); KETONES,URINE NEGATIVE (NEGATIVE); LEUKOCYTE ESTERASE,URINE LARGE (NEGATIVE); NITRITE,URINE POSITIVE (NEGATIVE); PROTEIN,URINE 100 mg/dL (NEGATIVE); UROBILINOGEN,URINE NEGATIVE mg/dL (<2.0)
--- NOTE | 2018-05-29 03:52 | ER Document Report ---
[facility] GI/ - General Chief Complaint: Urinary Retention Stated Complaint: UNABLE TO USE RESTROOM Time Seen by Provider: 05/28/18 23:13 Mode of Arrival: Wheelchair TRAVEL OUTSIDE OF THE [place] IN LAST 30 DAYS: No - HPI Patient complains to provider of: Abdominal pain - 67-year-old man presents for evaluation of the retention, Other - This 67-year-old gentleman presents for evaluation of an obstructed Diaz catheter. He has had a custodial indwelling Diaz catheter as a result of urinary retention from urethral strictures. He was seen earlier today and had a urinary catheter placed at outside hospital after which it stopped allowing him to void urine. He had worsening abdominal pain thereafter presented for further evaluation. He denies any diarrhea or constipation does endorse some dysuria does endorse retention does not endorse any fevers, chest pain, shortness of breath lightheadedness or other symptoms. He has had this happen before and notes that he has had multiple rods placed through his urethra to dilate his stricture. - Related Data Allergies/Adverse Reactions: erythromycin base Allergy (Verified 05/02/18 14:57) Sulfa (Sulfonamide Antibiotics) Allergy (Verified 05/02/18 14:57) Past Medical History - General Information source: Patient - Social History Smoking Status: Former Smoker Frequency of alcohol use: Social Drug Abuse: None Family History: Reviewed & Not Pertinent Patient has suicidal ideation: No Patient has homicidal ideation: No - Past Medical History Cardiac Medical History: Reports: Hx Hypertension Renal/ Medical History: Denies: Hx Peritoneal Dialysis Psychiatric Medical History: Reports: Hx Depression Past Surgical History: Reports: Hx Appendectomy - Reports as of 05/07/2018, Hx Orthopedic Surgery - Back 2, Other - 2 urological surgeries Review of Systems - Review of Systems -: Yes All other systems reviewed and negative Physical Exam - Vital signs Interpretation: Tachycardic - General General appearance: Appears well In distress: None - HEENT Head: Normocephalic Eyes: Normal Conjunctiva: Normal - Respiratory Respiratory status: No respiratory distress Chest status: Nontender Breath sounds: Normal - Cardiovascular Rhythm: Regular Heart sounds: Normal auscultation Murmur: No - Abdominal Inspection: Normal Tenderness: Tender, Other - diffusely tender Organomegaly: No organomegaly - Genitourinary Tenderness: Other - Tenderness over the meatus, tenderness in the scrotum, no obvious drainage from the urethra - Back Back: Normal - Extremities General upper extremity: Normal inspection General lower extremity: Normal inspection - Psychological Associated symptoms: Normal affect Course - Re-evaluation Re-evalutation: 05/29/18 03:49 67-year-old man who presents for evaluation of urinary retention. He has had a long-term indwelling Diaz catheter which recently obstructed, initially on evaluation the patient attempted replacement of Diaz catheter failed initially. [employer], traction, and utilized an 14 [place] coud catheter was able to subsequently place catheter with good urine return. Plan for urinalysis reassessment likely discharge home with treatment. 05/29/18 04:16 Urinalysis demonstrates pyuria bacteria cloudy urine will plan for treatment of urinary tract infection with return precautions. Patient encouraged to follow-up for continued monitoring of his Diaz catheter, to be discharged in the care of his son. - Laboratory Laboratory results interpreted by me: 05/29/18 03:15 Urine Protein 100 H Urine Blood SMALL H Urine Nitrite POSITIVE H Ur Leukocyte Esterase LARGE H Discharge - Discharge Clinical Impression: Urinary tract infection, Urinary retention Condition: Stable Disposition: HOME, SELF-CARE Instructions: Urinary Tract Infection ([facility]), Ciprofloxacin ([facility]) Additional Instructions: Call your primary physician tomorrow regarding today's visit return for worsening fevers or chills use the antibiotic as prescribed to treat your infection. Prescriptions: Ciprofloxacin HCl [Cipro 500 mg Tablet] 500 mg PO BID #20 tablet
[2018-05-29 04:13] VITALS: BP 144/89
== END 2018-05-29 04:50 | disposition home or self-care (01) ==
LOC: ER 22:42
DX: N39.0 Urinary tract infection, site not specified (principal); Z46.6 Encounter for fitting and adjustment of urinary device; Z88.3 Allergy status to other anti-infective agents; Z88.2 Allergy status to sulfonamides
CPT/HCPCS: 99284; 51702; 81001; C1758 ×2; A9270 ×2; J3490